=== PATIENT | female | born 1995 | race Two or more races ===

== ENCOUNTER 2023-05-28 20:12 | Inpatient (IN) | payer OTHER ==
[~2023-05-28] VITALS: Ht 157.5 cm; Wt 73.9 kg
[2023-05-28] MEDS ORDERED: PRENATAL CAPLE1 EAC1 (21:24)
[2023-05-28] MEDS ORDERED: PEPCID AC10 MG (21:24)
[2023-05-28 21:56] LABS: URINE APPEARANCE Turbid; URINE BILIRRUBIN Negative (NEGATIVE); URINE BLOOD Small; URINE COLOR Yellow; URINE GLUCOSE Negative (NEGATIVE); URINE LEUKOCYTE Small; URINE NITRATE Negative; URINE PROTEIN 30 (NEGATIVE); URINE UROBILINOGEN 0.2 E.U./dl
[2023-05-28 21:59] LABS: URINE BACTERIA 695.5 uL (0.0-1933); URINE EPITHELIAL CELLS 66.9 uL (0.0-38.8); URINE RBC 435.4 uL (0.0-20.8); URINE WBC 255.4 uL (0.0-23.2)
[2023-05-29 02:51] LABS: URINE CRYSTALS MANY /HPF; URINE YEAST FEW /hpf
[2023-05-29 04:22] LABS: HEMATOCRIT 34.8 % (36.0-45.00); MEAN CELL VOLUME 85.5 fL (80.00-100.00); MEAN CORPUSCULAR HEMOGLOBIN 29.4 pg (27.00-32.0); MEAN CORPUSCULAR HGB CONC 34.4 g/dl (32.0-36.0); PLATELET COUNT 216 K/uL (150-450); RED BLOOD COUNT 4.07 M/uL (4.00-6.00); RED CELL DISTRIBUTION WIDTH 14.8 % (11.5-14.5)
[2023-05-30 07:19] LABS: HEMATOCRIT 27.6 % (36.0-45.00); MEAN CELL VOLUME 86.1 fL (80.00-100.00); MEAN CORPUSCULAR HGB CONC 34.1 g/dl (32.0-36.0); PLATELET COUNT 184 K/uL (150-450); RED BLOOD COUNT 3.21 M/uL (4.00-6.00); RED CELL DISTRIBUTION WIDTH 15.3 % (11.5-14.5)
[2023-05-30 07:27] LABS: MEAN CORPUSCULAR HEMOGLOBIN 29.2 pg (27.00-32.0)
[2023-05-30 07:29] LABS: HEMOGLOBIN 9.4 g/dL (12.0-15.00)
== END 2023-05-31 17:27 | disposition home or self-care (01) | DRG 807 ==
LOC: OBS/DEL 20:12 → LDR 05-29 07:34 → OB/GYN 05-29 13:28
PROVIDERS: Obstetrics & Gynecology; ADMIT Student in an Organized Health Care Education/Training Program; ATTEND Student in an Organized Health Care Education/Training Program
PROC: 10E0XZZ Delivery of Products of Conception, External Approach (ICD-10-PCS; principal; 2023-05-29)
PROC: 0KQM0ZZ Repair Perineum Muscle, Open Approach (ICD-10-PCS; 2023-05-29)
PROC: 0UQMXZZ Repair Vulva, External Approach (ICD-10-PCS; 2023-05-29)
PROC: 4A1HXCZ Monitoring of Products of Conception, Cardiac Rate, External Approach (ICD-10-PCS; 2023-05-29)
PROC: 3E033VJ Introduction of Other Hormone into Peripheral Vein, Percutaneous Approach (ICD-10-PCS; 2023-05-29)
DX: O70.1 Second degree perineal laceration during delivery (principal); Z37.0 Single live birth; O71.82 Other specified trauma to perineum and vulva; Z3A.38 38 weeks gestation of pregnancy; Z20.822 Contact with and (suspected) exposure to COVID-19